=== PATIENT | female | born 1995 | race Caucasian/White ===

== ENCOUNTER → 2016-12-22 | Outpatient (CLI) | payer OTHER | LOC: RAD 16:30 | PROVIDERS: ATTEND Internal Medicine | DX: S89.81XA Other specified injuries of right lower leg, initial encounter (principal); X58.XXXA Exposure to other specified factors, initial encounter | CPT/HCPCS: 73562 ==

== ENCOUNTER 2017-01-25 15:30 | Outpatient (RCR) | payer OTHER ==
--- NOTE | 2017-01-09 10:28 | PT/OT/ST INITIAL EVALUATION ---
Department of Health and Human Services Form Approved [facility] Care Financing Administration OMB No. [id number] PLAN OF CARE/ASSESSMENT FOR OUTPATIENT REHABILITATION (Complete for Initial Claims Only) 1. PATIENT'S NAME Yousuf Olivier 2. ACC # [id number] 3. HICN NA 4. PROVIDER NO. [id number] 5. TYPE: PT 6. PRIOR HOSPITALIZATION NA 7. PRIMARY DX Right knee trauma 8. SECONDARY DX NA 9. ONSET DATE 12/22/2016 10. REFERRAL DATE 12/27/2016 11. SOC. DATE 12/29/2016 12. TIME OF EVAL 16:[address] Celine Ramesh 13. CHARGES/UNITS Evaluation 93132 1 unit vasopneumatic device 49792 1 unit of therapeutic exercise 17237 14. G CODES NA 15. PRIOR LEVEL OF FUNCTION; PERTINENT HISTORY (Prior therapy results, reason for referral.) S: Prior to therapy, the patient consented to today's evaluation and treatment. The patient is a 21-year-old female who presents to physical therapy with right knee trauma referred by Dr. Celine Ramesh. The patient reports on 12/22/2016, she was kicked in the back of the knee by a resident at work. She describes the injury as twisting on the involved knee and feeling a pop right away with swelling noted. Primary Complaint: The patient reports her pain is greatest medially at the knee joint, as well as behind the knee cap. She also reports in addition to the pain of the posterior knee and behind the patella, she feels a grated feeling with ambulation, as well as has had several occasions with her knee buckling. Prior level of function: The patient works at [employer]. 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 The patient had no limitations prior to her injury. Current level of function: The patient is still working, however, is working in the warehouse at work. She does plan to return to driving on Sunday. Therapy History: No therapy for this specific issue. Pain level: Maximum pain level is 8/10. Aggravating factors: Right knee pain is exacerbated by walking or weightbearing, as well as fully extending it. It Relieving factors: It is by rest, elevating her lower extremity and slight knee flexion. Diagnostic testing: X-rays were completed with no sign of fracture. No MRI has been completed at this time. Past medical history: The patient has no prior knee injuries or surgeries and her medical history is unremarkable otherwise. Current medications: The patient is taking ibuprofen or Tylenol for pain as needed. Patient's Goal: The patient's goal for physical therapy is to be able to walk without any pain. 16. INITIAL ASSESSMENT/SAFETY PRECAUTIONS/MEDICAL COMPLICATIONS (Level of function at start of care. Be specific, use objective measures, list problems.) O: APPEARANCE AND OBSERVATION: Observation of the patient's posture reveals left lower extremity weight shifting, foot-flat positioning with no heel strike or push off. The patient is unable to maintain weightbearing on the right lower extremity secondary to pain. She also demonstrates poor quadriceps control. The patient is obese. The patient does have mild swelling throughout the right knee joint. PALPATION: Significant tenderness to palpation of the right medial knee joint, as well as the posterior distal hamstring insertion. SPECIAL TESTS: Then patient scores a 17/80 on the Lower Extremity Functional Index. Negative varus and valgus stress test. Negative Shania's test bilaterally for meniscus involvement. Anterior and posterior drawer test were negative on the left. Positive posteriorly for increased laxity on the right. It should be noted that the patient's right patella is laterally tilted. RANGE OF MOTION/FLEXIBILITY: Right knee flexion 110 degrees and painful, left 132 degrees. Right knee extension is lacking 5 degrees from straight. Left has 5 degrees of hyperextension. Right ankle dorsiflexion is 11 degrees, left is 20 degrees. STRENGTH: Right hip flexion 3/5, left 5/5. Right knee flexion 3+/5, left 5/5. Right knee extension 3/5, left 5/5. Right ankle dorsiflexion 3+/5, left 5/5. TODAY'S TREATMENT: Today's treatment consisted of educating the patient on the findings of the evaluation and recommended treatment plan. The physical therapist initiated range of motion exercises, and quadriceps strengthening exercises as the patient tolerated, gait training working on heel-toe gait pattern, and pain and swelling were addressed with the use of a vasopneumatic device to the right knee. 17. INITIAL POC: (Specify procedures, modalities, short and fpc goals) A: The patient presents to physical therapy approximately 1 week after a knee injury sustained at work. The patient has mild swelling in the right knee joint, impaired range of motion, as well as impaired strength and gait pattern. PROGNOSIS: The patient does have a good outcome with regular therapy attendance and compliance with her home exercise program, as well as proper use of an assistive device as needed. INFORMED CONSENT: The diagnosis, prognosis, treatment plan, risks and expected outcomes were discussed with this patient and she is agreeable to today's established plan of care. SHORT TERM GOALS: 1. The patient will report independence and compliance with her home exercise program. 2. The patient will improve right knee affliction to be a minimum of 125 degrees and be able to regain full extension with ankle dorsiflexion being 15 degrees actively. 3. The patient will demonstrate a minimum of 4-/5 hip flexion, knee flexion, knee extension, and ankle dorsiflexion strength. 4. The patient will demonstrate the ability to ambulate greater than 1000 feet with proper heel strike and push-off on the right lower extremity to decreased compensatory gait pattern. P: Plan to see this patient 2 times a week for 4 weeks if Worker's Compensation agrees as her current script is for 2 times a week for 2 weeks. The treatment will address right knee pain and swelling, impaired range of motion strength and gait. The treatment will include modalities as needed to address the pain and muscle tightness. Manual therapy will be utilized to improve muscle flexibility and joint mobility. Therapeutic exercise will emphasize regaining full range of motion with progressive strengthening, gait training, and neural reeducation will be utilized as well. Functional training will be used in order to help the patient regain proper movement patterns for work. The patient was provided a written home exercise program and this will be progressed as needed. Thank you for the referral of this patient. 18. FREQUENCY 2 times a week 19. DURATION 4 weeks 20. FUNCTIONAL LEVEL (End of claim period) 21. PHYSICIAN SIGNATURE ? ON FILE OR ENTER HERE: 22. DATE: I certify the need for these services furnished under this plan of care and if for partial hospitalization. 23. CERTIFICATION FROM THROUGH FORM [id number]
[~2017-01-25 15:30] MED LIST: HYDR-3754 PO; albuterol; birth control; metformin
== END 2017-02-04 12:00 | disposition home or self-care (01) ==
LOC: PT 15:30
PROVIDERS: ATTEND Internal Medicine
DX: S89.81XD Other specified injuries of right lower leg, subsequent encounter (principal); W50.1XXD Accidental kick by another person, subsequent encounter